=== PATIENT | male | born 1955 | race American Indian/Alaskan Native ===

== ENCOUNTER 2020-11-27 08:00 | Outpatient (CLI) | payer OTHER | END 2020-11-27 08:30 | disposition home or self-care (01) | LOC: PPH VACUNA 08:00 | PROVIDERS: ATTEND Emergency Medicine Pediatric Emergency Medicine | DX: Z23 Encounter for immunization (principal) ==

== ENCOUNTER 2021-12-30 11:22 | Outpatient (CLI) | payer OTHER | END 2021-12-30 11:32 | disposition home or self-care (01) | LOC: PPH VACUNA 11:22 | PROVIDERS: ATTEND Emergency Medicine Pediatric Emergency Medicine | DX: Z23 Encounter for immunization (principal) ==

== ENCOUNTER 2022-10-21 09:04 | Outpatient (CLI) | payer OTHER | END 2022-10-21 09:09 | disposition home or self-care (01) | LOC: RX STUDY 09:04 | PROVIDERS: ATTEND Internal Medicine Gastroenterology | DX: R13.0 Aphagia (principal) ==